=== PATIENT | male | born 2000 | race Caucasian/White ===

== ENCOUNTER 2021-11-23 14:18 | Emergency (ER) | payer OTHER ==
[2021-11-23 14:33] VITALS: BP 114/74; PULSE 69; RESP 20; TEMP 98; BMI 26.8
[2021-11-23] MEDS ORDERED: BACITRACIN 15 GM TUBE TOPICAL OINTMENT ONE (15:50)
== END 2021-11-23 16:05 | disposition home or self-care (01) ==
LOC: JERFT 14:18
DX: S80.811A Abrasion, right lower leg, initial encounter (principal); S80.11XA Contusion of right lower leg, initial encounter
CPT/HCPCS: 73590-TC-RT-FY; 99284-25

== ENCOUNTER 2023-06-21 08:58 | Emergency (ER) | payer OTHER ==
[2023-06-21 09:04] VITALS: BP 116/68; PULSE 78; RESP 18; TEMP 98.2; BMI 30.5
[2023-06-21] MEDS ORDERED: DIPHTH,PERTUSS(ACELL),TET 0.5 ML DISP.SYRIN IM ONE (09:38)
[2023-06-21] MEDS: DIPHTH,PERTUSS(ACELL),TET 0.5 ML DISP.SYRIN IM ONE (09:47)
== END 2023-06-21 10:14 | disposition home or self-care (01) ==
LOC: JERFT 08:58
PROC: 3E0234Z Introduction of Serum, Toxoid and Vaccine into Muscle, Percutaneous Approach (ICD-10-PCS; principal; 2023-06-21)
DX: S80.11XA Contusion of right lower leg, initial encounter (principal); W18.39XA Other fall on same level, initial encounter
CPT/HCPCS: 90715; 99281-25